=== PATIENT | female | born 1930 | race Caucasian/White ===

== ENCOUNTER 2016-07-22 22:17 | Inpatient (IN) | payer MEDICARE, OTHER ==
--- NOTE | ~2016-07-22 | CN ---
Consultation Report [facility] [address] [place]. [address] NAME: FRANCISCO VIDALES : 30 STATUS : ADM IN [facility]#: [id number] AGE: 85 ADM/REG DATE : 07/23/16 MR#: [id number] REPORT SERV DATE: 07/23/16 DICTATED BY: GEE HUNT DATE: 07/23/16 REPORT STATUS : Draft TRANSCRIBED BY: MODL DATE: 07/23/16 CONSULTATION DATE OF CONSULTATION: 07/23/2016 REASON FOR CONSULTATION: New onset atrial fibrillation, troponinemia. PRIMARY CAMP ASSISTANT: None. HISTORY OF PRESENT ILLNESS: Ms Vidales is a pleasant 85-year-old female with a history of remote tobacco smoking with COPD, recurrent pneumonia, anxiety, hypertension, and recent right femoral fracture deemed poor surgical candidate,who was brought in from [facility], where she has resided for the past several months with worsening respiratory distress. The patient has recently been treated for a pneumonia at the nursing facility with Levaquin. However, she has had worsening of her breathing status with increased symptoms of shortness of breath as well as worsening hypoxia as of yesterday, prompting her to be brought in to [facility] for further care and evaluation. Unfortunately, family is unavailable at the time of my visitation, therefore history is limited to record review and in speaking with the patient, who is a very poor historian. Nevertheless, she denies having any chest pains outside of her coughing spells. She notes that in light of having being treated for pneumonia approximately two weeks ago as well as her worsening respiratory status presently, she has been coughing a great deal. Because of this, she has coughing related chest discomfort, but no chest pains or chest pressures otherwise. She has no cardiac history that is known at this point in time. She otherwise has minimal other complaints. She does state that she has some chronic back pain and is chronically bed- ridden at this point in time. PAST MEDICAL HISTORY: As above. SOCIAL HISTORY: The patient lives at a longterm facility. She is a former smoker. Denies drinking alcohol, or doing drugs. FAMILY HISTORY: She has a family history that is noncontributory for premature cardiovascular disease. MEDICATIONS: Her medications at the facility nursing facility include: 1. BuSpar. 2. Calcium. 3. Vitamin D. 4. Flonase. 5. Lasix. 6. Levaquin. 7. Cozaar. 8. Magnesium oxide. Consultation Report [place] [address] [place]. [address] NAME: FRANCISCO VIDALES : 30 STATUS : ADM IN [facility]#: [id number] AGE: 85 ADM/REG DATE : 07/23/16 MR#: [id number] REPORT SERV DATE: 07/23/16 DICTATED BY: GEE HUNT DATE: 07/23/16 REPORT STATUS : Draft TRANSCRIBED BY: MODL DATE: 07/23/16 9. Macrobid. 10.Phosphate Dibasic. 11.Klor-Con. 12.Senokot. 13.Ultram. REVIEW OF SYSTEMS: As above, all other systems are otherwise negative. PHYSICAL EXAMINATION: VITAL SIGNS: Blood pressure 117/59, pulse 78, atrial fibrillation, temperature 98.8. GENERAL: Frail. Failure to thrive. Elderly woman. Pleasant in demeanor. NEURO: Awake, alert, and oriented x2 to x3. No focal deficits; however, bilateral lower extremities nonmobile. RESPIRATORY: At rest normal work of breathing. Diffuse severe rhonchi bilaterally may have some rales as well. CARDIAC: Irregular. Distant heart sounds. No obvious murmurs, rubs, or gallops. ABDOMEN: Soft, nontender, and nondistended. No rebound or guarding. EXTREMITIES: Contracted. Immobile lower extremities bilaterally. 2+ pitting edema bilateral lower extremities. Ecchymotic changes in her lower extremities bilaterally as well. SKIN: Grossly intact in visible areas. No obvious active rash present. PERTINENT TEST FINDINGS: Potassium 3.1, creatinine 0.73, GFR 87, and magnesium 1.8. White blood cell count 16. Troponin 2.1. BNP 825. EKG with atrial fibrillation with controlled ventricular response (on Dilt drip), no definitive ischemic ST-T changes, LVH is noted on admission EKG. IMPRESSION AND PLAN: Ms Vidales is a pleasant 85-year-old female with a history of chronic obstructive pulmonary disease (former tobacco smoking), hypertension, recurrent pneumonia, and recent right femur fracture deemed poor surgical candidate, who has been bed-ridden at a subacute nursing facility over the past few months coming in with worsening hypoxic respiratory failure in the setting of right-sided pneumonia as well as chronic obstructive pulmonary disease exacerbation. In this setting, she has also been found to have new onset atrial fibrillation and elevated troponin at 2.1. In speaking with her, she has no convincing cardiac chest pains at this point in time, as her chest pains are exclusively limited to coughing spells that she has had over the past several weeks during her pneumonia treatment course. In light of this, I am not certain that her enzymes represent a primary coronary event, as much as type 2 elevation in the setting of chronic obstructive pulmonary disease exacerbation, pneumonia, and new onset atrial fibrillation with rapid ventricular response. Accordingly, I have the following recommendations by problem below: 1. Right middle lobe pneumonia - treated with antibiotics as you are doing. Nasal cannula oxygen. 2. Chronic obstructive pulmonary disease exacerbation - nebulizer treatments and treatment per #1. Consultation Report [place] [id number] [facility] [place]. [address] NAME: FRANCISCO VIDALES : 30 STATUS : ADM IN PAT#: [id number] AGE: 85 ADM/REG DATE : 07/23/16 MR#: [id number] REPORT SERV DATE: 07/23/16 DICTATED BY: GEE HUNT DATE: 07/23/16 REPORT STATUS : Draft TRANSCRIBED BY: DIANE DATE: 07/23/16 3. New onset atrial fibrillation - on my review of telemetry, this appears to be paroxysmal. Therefore, in light of this, as well as her advanced age, I believe she will do well with an antiarrhythmic. I will start her on a loading dose of amiodarone. It will be fine to continue her Cardizem drip at this time for rate control. Eventually, this will be switched to an oral drug either a beta-nichole or an oral calcium channel nichole. Given her age of 85, hypertension, gender, and probable systolic dysfunction, she has a CHADS-VASc score of 4 to 5. Her GFR is 87 and she has no clear contraindications to anticoagulation. Therefore, I do recommend initiating Eliquis once she is off heparin drip (see below). 4. NSTEMI - troponin 2.1. Trend enzymes. Check a CK as well as a CK-MB. Continue heparin drip for 48 hours. I spoke with her at length regarding the possibility of completing an angiography; however, she prefers to be medically managed at this time without undergoing a procedure understanding the risks and benefits thereof. Therefore, we will continue above therapies at this time. I have also reached out to her daughter who she states is her Power of Core Placer, to definitively assess her plan with regard to medical management versus coronary angiography within the next one to two days. I am waiting to hear back from her daughter on this as well. Also, check an echocardiogram. RADHA/MODL Gee Hunt MD / [id number] CC: Zoe Guevara
--- NOTE | ~2016-07-22 | DS ---
Discharge Summary [facility] [address] [place]. [address] NAME: FRANCISCO ARAIZA : 30 STATUS : DIS IN PAT#: [id number] AGE: 85 ADM/REG DATE : 07/23/16 MR#: [id number] REPORT SERV DATE: 08/07/16 DICTATED BY: ALEJANDRINA CLARKE DATE: 08/06/16 REPORT STATUS : Draft TRANSCRIBED BY: MODL DATE: 08/06/16 ADMISSION DATE: 07/23/2016 DISCHARGE DATE: 07/25/2016 DISCHARGE DIAGNOSES: 1. Septic shock. 2. Acute hypoxic respiratory failure. 3. Pneumonia. 4. Dkp-EA-czxmvknmi myocardial infarction. 5. 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 6. New-onset atrial fibrillation. 7. Protein-calorie malnutrition, severe. 8. Chronic dysphagia. 9. Chronic debility, patient is bedridden. HISTORY OF PRESENT ILLNESS: This is an 86-year-old female patient, who [facility], with shortness of breath and cough. Please see the dictated H and P. HOSPITAL COURSE: She was hospitalized initially for the acute respiratory failure with hypoxia with multiple diagnoses at the same time including heart failure, slk-AJ-fkbfyjibb WI, and pneumonia. The patient also had chronic dysphagia. The patient remained on strong broad-spectrum antibiotics and IV diuretics. Was seen by Dr. Thomas from the [facility] and had an echocardiogram. The echocardiogram showed severe right ventricular and left ventricular dysfunction with systolic and diastolic dysfunction. The patient started to deteriorate with the hypoxia. She was put on BiPAP overnight, and I tried to contact the family. Unfortunately, the family was not contacted until the next morning. Finally, the patient's family came. The patient continued to deteriorate. I arranged ICU transfer by talking to Dr. Cronin, and the patient's ICU stay was accepted. At that time, the family wanted to make a decision with a little more time to talk to their friend's doctor. Finally, they made a decision to transfer the patient to the ICU around 4 o'clock in the afternoon. The patient was subsequently transferred to the CVICU #2 bed. After the Critical Care Team handed over this patient, the patient shortly deteriorated and had a code blue. Please see dictated consultation note done by Dr. Lundberg. She had 2 codes within an hour. At the last code, the patient did not show any meaningful signs of recovery. Therefore, the patient's family decided no CPR, no shock at the moment. The patient a short time later. I was informed the patient at 1815 on 07/25/2016. EKL/MODL Alejandrina Clarke M.D. / [id number] Discharge Summary [address] [address] NAME: FRANCISCO ARAIZA : 30 STATUS : DIS IN PAT#: [id number] AGE: 85 ADM/REG DATE : 07/23/16 MR#: [id number] REPORT SERV DATE: 08/07/16 DICTATED BY: ALEJANDRINA CLARKE DATE: 08/06/16 REPORT STATUS : Draft TRANSCRIBED BY: DIANE DATE: 08/06/16 CC: Zoe Guevara
--- NOTE | ~2016-07-22 | HP ---
History And Physical [place] [id number] [facility] [place]. [address] NAME: FRANCISCO ARAIZA : 30 STATUS : ADM IN [facility]#: [id number] AGE: 85 ADM/REG DATE : 07/23/16 MR#: [id number] REPORT SERV DATE: 07/23/16 DICTATED BY: HERO CABEZAS DATE: 07/23/16 REPORT STATUS : Draft TRANSCRIBED BY: MODL DATE: 07/23/16 DATE OF ADMISSION: 07/23/2016 CHIEF COMPLAINT: An 85-year-old female presenting with shortness of breath and cough. HISTORY OF PRESENT ILLNESS: The patient's history was obtained through an interview with the patient as well as her daughter, Heath, over the telephone, coupled with review of her medical records obtained from [facility]. It appears that for several months the patient has been rehabilitating at [facility]. She has a known right femur fracture, but has been evaluated past by orthopedic surgeons and felt to be too unstable clinically for surgical repair, therefore she is wheelchair bound and undergoing strengthening rehabilitation in a [facility] setting in hopes that she can become more independent. About 10 days ago, she began to develop increasing cough and shortness of breath. She was placed on Levaquin at the nursing facility for "bronchitis," but has had no real improvement in her symptoms and in fact only progression. She describes dyspnea on exertion, increasing cough productive of a thick phlegm, but then on the night of admission, the patient had such severe shortness of breath that the daughter asked staff to check her O2 saturation and was found to be 82% on room air. Apparently, the patient looked "white as a sheet," was diaphoretic, wet, and sweaty according to the daughter. She has had intermittent chest pain over last few days, but she attributes this to her coughing, it is a mid chest discomfort, exacerbated by coughing, 6/10 severity. She has had myalgias and arthralgias through many of her joints. No fevers or chills. No nausea or vomiting. She has no confusion. REVIEW OF SYSTEMS: Otherwise, a 14-point review of systems was obtained and was negative. PAST MEDICAL HISTORY: 1. COPD. 2. Pneumonia, was recently in the fall of 2016. 3. Psoriasis. 4. Hypertension. 5. Anxiety. 6. Urinary tract infection. 7. Chronic back pain. 8. Right femur fracture, but no surgical intervention. 9. Cellulitis. 10.No cardiac disease known. History And Physical [address] [address] NAME: FRANCISCO ARAIZA : 30 STATUS : ADM IN PAT#: [id number] AGE: 85 ADM/REG DATE : 07/23/16 MR#: [id number] REPORT SERV DATE: 07/23/16 DICTATED BY: HERO CABEZAS DATE: 07/23/16 REPORT STATUS : Draft TRANSCRIBED BY: DIANE DATE: 07/23/16 PAST SURGICAL HISTORY: T12 vertebroplasty. ALLERGIES: PENICILLIN. SOCIAL HISTORY: Quit smoking remotely. No alcohol abuse. Resides now at [facility]. She is wheelchair bound, became a , and she is only 39 years' old, has a daughter and son. FAMILY HISTORY: Heart disease. CURRENT MEDICATIONS: Include Tylenol with Codeine, BuSpar 5 mg p.o. b.i.d., Tums p.r.n., vitamin D, Flonase, Lasix 20 mg daily, Levaquin 750 mg p.o. daily, Cozaar 25 mg p.o. daily, magnesium oxide 800 mg p.o. b.i.d., multivitamin, Macrobid, potassium phosphate, potassium supplement, Senokot, tramadol. PHYSICAL EXAMINATION: VITAL SIGNS: Temperature 98.2, pulse 118, blood pressure 102/62, respiratory rate 22, and O2 sat 82% on room air and 92% on 3 L nasal cannula. GENERAL: A chronically debilitated appearing female, but is in no apparent acute distress. She actually appears quite comfortable in her bed as I am evaluating her. HEENT: Pupils equal, round, and reactive to light. No conjunctival pallor. No scleral icterus. Nares are patent. Oropharynx is clear of obstruction. She currently has moist mucous membranes. NECK: Trachea midline. No thyromegaly. LYMPH: No cervical lymphadenopathy. No supraclavicular lymphadenopathy. RESPIRATORY: The patient has significantly decreased respiratory sounds on the base of her right lung, and I do seemed to appreciate focal egophony over a large dissection of her right middle and lower lung. There are perhaps some slight wet crackles on exam, but no overt rales. There are some scattered end-expiratory wheezes at the apices. The patient has a slightly labored respiratory effort, but is not in distress at this time. CARDIOVASCULAR: Irregularly irregular, tachycardic. No murmurs, rubs, or gallops. She has chronic-appearing lower extremity edema with no pitting edema at this time that is symmetrical. ABDOMEN: Soft, nontender, nondistended. Normal bowel sounds auscultated throughout. No organomegaly. DERMATOLOGICAL: Warm and dry extremities. No pallor. No cyanosis. PSYCHIATRIC: Somewhat anxious affect and mood. She is alert. She is oriented to time and location. LABORATORY DATA: White blood count 16.2, hemoglobin 13, hematocrit 40, platelets 327, sodium 141, potassium 3.1, chloride 98, bicarb 29, BUN 11, creatinine 0.73, glucose 169, brain natriuretic peptide 824, troponin 3.14, INR of 1.1. ABG demonstrates pH of 7.49, PaCO2 of 39, PaO2 of 94, and a bicarbonate of 28. STUDIES: 1. Chest x-ray, by my own evaluation shows a dense right middle lobe pneumonia, History And Physical [address] [address] NAME: FRANCISCO ARAIZA : 30 STATUS : ADM IN [facility]#: [id number] AGE: 85 ADM/REG DATE : 07/23/16 MR#: [id number] REPORT SERV DATE: 07/23/16 DICTATED BY: HERO CABEZAS DATE: 07/23/16 REPORT STATUS : Draft TRANSCRIBED BY: MODFelisa DATE: 07/23/16 cardiomegaly, perhaps some slight bilateral pleural effusions? 2. EKG, by my own evaluation shows rapid atrial fibrillation. No ST changes. ASSESSMENT AND PLAN: 1. Sepsis with [facility] acquired pneumonia. White blood cell count of 16.2, hypoxia, tachycardia, tachypnea. Check blood cultures. Check lactic acid. Place on appropriate IV antibiotics including cefepime and vancomycin. 2. Hypoxic respiratory failure. Provide supportive care. 3. Non-ST elevation myocardial infarction. Start a heparin drip IV. No current EKG changes, but will follow. Discussed the case with Dr. Mcconnell, needle loom tender. 4. Rapid atrial fibrillation. Start Cardizem drip IV. New onset, check an echocardiogram. 5. Congestive heart failure exacerbation. Place on IV diuretic as tolerated. Check an echocardiogram, holding DOLLY inhibitor and beta nichole secondary to borderline hypotension. 6. Chronic obstructive pulmonary disease. Place on DuoNeb nebulizers. Noted that I discussed this case at length with the critical care physician, Dr. Lundberg. For now, we will be monitoring the patient on a telemetry bed, but we will be monitoring closely for signs of instability. CELSO/MODFelisa Hero Cabezas M.D. / [id number] CC: Ruben Maurice D.O.
--- NOTE | ~2016-07-22 | CN ---
Consultation Report [facility] [address] [place]. [address] NAME: TINA VIDALES : 30 STATUS : ADM IN PAT#: [id number] AGE: 85 ADM/REG DATE : 07/23/16 MR#: [id number] REPORT SERV DATE: 07/25/16 DICTATED BY: ELY GREY DATE: 07/25/16 REPORT STATUS : Draft TRANSCRIBED BY: MODL DATE: 07/25/16 CODE BLUE RESPONSE NOTE DATE OF CONSULTATION: Code Blue was called at 1703 on 07/25/2016, on patient Tina Vidales in CV-ICU, bed 2. Evidently, the patient had coded shortly before this code event which was run by Dr. Cronin. Her initial rhythm was PEA at 1703, and ACLS was initiated. She received 1 amp of epinephrine and on subsequent pulse check at 1705, remained in PEA. Another amp of epinephrine and another 2 minutes of CPR were administered. At subsequent pulse check at 1708, the patient was in sinus tach with a very thready pulse and after extensive discussion with her son and daughter at the bedside, decision was made to proceed with making Ms. Vidales a no-shock, no-CPR in light of her poor prognosis for meaningful recovery. She a short time later, and I completed the certificate. Her family was updated and all questions were answered. ELIU/DIANE Ely Grey MD / [id number] CC: Alejandrina Clarke M.D.
[2016-07-22 20:45] LABS: BASOPHILS 0.1 %; BASOPHILS ABSOLUTE 0.01 10/3/uL (0.0-0.16); EOSINOPHILS 0 %; HEMATOCRIT 39.7 % (36.0-48.0); HEMOGLOBIN 13.1 g/dL (12.0-16.0); IMMATURE GRANULOCYTES 0.2 %; IMMATURE GRANULOCYTES ABSOLUTE 0.04 10/3/uL (0.0-0.11); LYMPHOCYTES 5.3 %; LYMPHOCYTES ABSOLUTE 0.86 10/3/uL (0.67-4.30); MANUAL DIFF NO %; MEAN CORPUSCULAR VOLUME 96.8 fL (80-100); MEAN PLATELET VOLUME 9.1 fL (9.2-13.0); MONOCYTES 4.4 %; MONOCYTES ABSOLUTE 0.71 10/3/uL (0.21-1.20); PLATELET COUNT 327 10/3/uL (150-400); RBC DISTRIBUTION WIDTH 14.1 % (12.0-16.0); WHITE BLOOD CELLS 16.2 10/3/uL (4.5-10.5)
[2016-07-22 20:57] LABS: INTERNATIONAL NORMAL RATI 1.1 UNITS (-); PARTIAL THROMBO TIME 36.1 SEC (22.5-37.2); PROTIME (NOT ORD) 14.1 SEC (12.0-14.5)
[2016-07-22 21:01] LABS: BUN (BLOOD UREA NITROGEN) 11 MG/DL (6-23); CALCIUM, SERUM 8.1 MG/DL (8.5-10.4); CHLORIDE, SERUM 98 MMOL/L (96-112); CO2 (CARBON DIOXIDE) 29 MMOL/L (24-34); CREATININE 0.73 MG/DL (0.55-1.02); GFR AFRICAN AMERICAN 87 ML/MIN (>=60); GFR NON AFRICAN AMERICAN 75 ML/MIN (>=60); GLUCOSE, SERUM 169 MG/DL (60-99); POTASSIUM, SERUM 3.1 MMOL/L (3.5-5.3); SODIUM, SERUM 141 MMOL/L (135-148)
[2016-07-22 21:05] LABS: BE (BASE EXCESS) 4.9 MEQ/L (0 +/- 2.5); DEVICE NC; HCO3 (ACTUAL BICARBONATE) 28.5 MEQ/L (23-27); HEMOBLOGIN CONTENT 12.2 G/DL (12-16); INSTRUMENT SERIAL # 8087; METHEMOGLOBIN 0.3 % (0-3); O2 CONTENT 16.6 VOL% (18-24); OPERATOR ID 334499; PCO2 (CO2 TENSION) 39 MMHG (35-45); PO2 (O2 TENSION) 94 MMHG (79-93); SAMPLE Arterial; pH 7.49 (7.37-7.43)
[2016-07-22 21:06] LABS: ALLENS TEST Pos
[2016-07-22 21:08] LABS: CHEST PAIN PROFILE TAT 0 Hrs 27 Mins; TROPONIN I 2.14 NG/ML (<0.05)
[~2016-07-22 22:17] MED LIST: BUSPAR5 PO; CENTRUM PO; COZ25 PO; FLONASE NAS; KLOR-CON 1010 MEQ PO; L20 PO; MACROBID PO; MAGOX4 PO; PHOSPHA 250 PO; SENTAB PO; TUMSROLL PO; VITAMIN D31000 UNIT PO
[2016-07-22] MEDS ORDERED: LEVAQUIN750 MG PO (22:26)
[2016-07-22] MEDS ORDERED: T3 PO (22:27)
[2016-07-22] MEDS ORDERED: ULTRAM50 PO (22:27)
[2016-07-23 08:05] LABS: INTERNATIONAL NORMAL RATI 1.3 UNITS (-); PROTIME (NOT ORD) 15.7 SEC (12.0-14.5)
[2016-07-23 08:15] LABS: PARTIAL THROMBO TIME > 150.0 SEC (22.5-37.2)
[2016-07-23 08:22] LABS: A/G RATIO 0.5 (0.7-1.9); ALBUMIN 2.3 G/DL (3.5-5.0); ALKALINE PHOSPHATASE 140 U/L (45-117); CALCIUM, SERUM 7.7 MG/DL (8.5-10.4); CHLORIDE, SERUM 102 MMOL/L (96-112); CO2 (CARBON DIOXIDE) 25 MMOL/L (24-34); CREATININE 0.57 MG/DL (0.55-1.02); GFR AFRICAN AMERICAN 98 ML/MIN (>=60); GFR NON AFRICAN AMERICAN 85 ML/MIN (>=60); GLUCOSE, SERUM 162 MG/DL (60-99); PHOSPHORUS, SERUM 2.4 MG/DL (2.5-4.5); SGOT(AST) 28 U/L (5-40); SGPT(ALT) 9 U/L (5-65); TOTAL BILIRUBIN 0.6 MG/DL (0-1.2); TOTAL PROTEIN 7.3 G/DL (6.0-8.5)
[2016-07-23 08:23] LABS: BUN (BLOOD UREA NITROGEN) 15 MG/DL (6-23); SODIUM, SERUM 141 MMOL/L (135-148); TROPONIN I 1.73 NG/ML (<0.05)
[2016-07-23 08:34] LABS: B NATRIURETIC PEPTIDE (BNP) 2415.4 PG/ML (< 100.0)
[2016-07-23 09:00] LABS: PROCALCITONIN 1.16 ng/mL (<0.5)
[2016-07-23 09:29] LABS: CK-MB 5.3 NG/ML; CPK 66 U/L (0-200)
[2016-07-23 10:42] LABS: BASOPHILS 0 %; EOSINOPHILS 0 %; IMMATURE GRANULOCYTES 0.5 %; IMMATURE GRANULOCYTES ABSOLUTE 0.07 10/3/uL (0.0-0.11); LYMPHOCYTES 8.8 %; LYMPHOCYTES ABSOLUTE 1.34 10/3/uL (0.67-4.30); MEAN CORPUS HGB CONC 32.8 g/dL (32.0-36.0); MEAN CORPUSCULAR HEMOGLOB 31.3 pg (26.0-34.0); MEAN CORPUSCULAR VOLUME 95.3 fL (80-100); MEAN PLATELET VOLUME 9.5 fL (9.2-13.0); MONOCYTES 3.7 %; MONOCYTES ABSOLUTE 0.56 10/3/uL (0.21-1.20); NEUTROPHILS ABSOLUTE 13.18 10/3/uL (2.02-8.40); PLATELET COUNT 286 10/3/uL (150-400); WHITE BLOOD CELLS 15.2 10/3/uL (4.5-10.5)
[2016-07-23 10:44] LABS: HEMATOCRIT 30.5 % (36.0-48.0); MANUAL DIFF NO %
[2016-07-23 12:46] LABS: PREALBUMIN 4.9 MG/DL (17.0-43.0)
[2016-07-23 13:06] LABS: GLYCOHEMOGLOBIN (HbA1c) 5.3 % (4.7-6.1)
[2016-07-23 19:10] LABS: CK-MB 3.3 NG/ML; CPK 53 U/L (0-200); POTASSIUM, SERUM 3.9 MMOL/L (3.5-5.3); TROPONIN I 0.97 NG/ML (<0.05)
[2016-07-24 07:16] LABS: BASOPHILS 0.1 %; BASOPHILS ABSOLUTE 0.01 10/3/uL (0.0-0.16); EOSINOPHILS 0 %; HEMOGLOBIN 8.2 g/dL (12.0-16.0); IMMATURE GRANULOCYTES 0.4 %; IMMATURE GRANULOCYTES ABSOLUTE 0.06 10/3/uL (0.0-0.11); LYMPHOCYTES 7.1 %; LYMPHOCYTES ABSOLUTE 1.11 10/3/uL (0.67-4.30); MEAN CORPUS HGB CONC 33.6 g/dL (32.0-36.0); MEAN CORPUSCULAR HEMOGLOB 31.3 pg (26.0-34.0); MEAN CORPUSCULAR VOLUME 93.1 fL (80-100); MEAN PLATELET VOLUME 8.9 fL (9.2-13.0); MONOCYTES ABSOLUTE 0.47 10/3/uL (0.21-1.20); NEUTROPHILS 89.4 %; NEUTROPHILS ABSOLUTE 13.97 10/3/uL (2.02-8.40); PLATELET COUNT 203 10/3/uL (150-400); RED CELL COUNT 2.62 10/6/uL (4.0-5.6); WHITE BLOOD CELLS 15.6 10/3/uL (4.5-10.5)
[2016-07-24 07:21] LABS: HEMATOCRIT 24.4 % (36.0-48.0); MANUAL DIFF NO %
[2016-07-24 07:31] LABS: A/G RATIO 0.6 (0.7-1.9); ALBUMIN 2.5 G/DL (3.5-5.0); ALKALINE PHOSPHATASE 104 U/L (45-117); BUN (BLOOD UREA NITROGEN) 21 MG/DL (6-23); CALCIUM, SERUM 7.8 MG/DL (8.5-10.4); CHLORIDE, SERUM 99 MMOL/L (96-112); CK-MB 1.7 NG/ML; CO2 (CARBON DIOXIDE) 27 MMOL/L (24-34); CPK 25 U/L (0-200); CREATININE 0.59 MG/DL (0.55-1.02); GFR AFRICAN AMERICAN 97 ML/MIN (>=60); GFR NON AFRICAN AMERICAN 84 ML/MIN (>=60); GLOBULIN 4.2 G/DL (2.5-4.1); GLUCOSE, SERUM 153 MG/DL (60-99); POTASSIUM, SERUM 3.8 MMOL/L (3.5-5.3); SGOT(AST) 18 U/L (5-40); SGPT(ALT) 10 U/L (5-65); SODIUM, SERUM 136 MMOL/L (135-148); TOTAL BILIRUBIN 0.6 MG/DL (0-1.2); TOTAL PROTEIN 6.7 G/DL (6.0-8.5)
[2016-07-24 07:32] LABS: TROPONIN I 0.56 NG/ML (<0.05)
[2016-07-24 12:29] LABS: BASOPHILS 0.1 %; BASOPHILS ABSOLUTE 0.01 10/3/uL (0.0-0.16); EOSINOPHILS 0 %; HEMOGLOBIN 9.5 g/dL (12.0-16.0); IMMATURE GRANULOCYTES 0.4 %; IMMATURE GRANULOCYTES ABSOLUTE 0.05 10/3/uL (0.0-0.11); LYMPHOCYTES 6.5 %; LYMPHOCYTES ABSOLUTE 0.91 10/3/uL (0.67-4.30); MEAN CORPUS HGB CONC 34.4 g/dL (32.0-36.0); MEAN CORPUSCULAR HEMOGLOB 32.4 pg (26.0-34.0); MEAN CORPUSCULAR VOLUME 94.2 fL (80-100); MEAN PLATELET VOLUME 9.3 fL (9.2-13.0); MONOCYTES 4.4 %; MONOCYTES ABSOLUTE 0.61 10/3/uL (0.21-1.20); NEUTROPHILS 88.6 %; NEUTROPHILS ABSOLUTE 12.39 10/3/uL (2.02-8.40); PLATELET COUNT 231 10/3/uL (150-400); RED CELL COUNT 2.93 10/6/uL (4.0-5.6)
[2016-07-24 12:32] LABS: HEMATOCRIT 27.6 % (36.0-48.0); MANUAL DIFF NO %
[2016-07-24 12:44] LABS: A/G RATIO 0.6 (0.7-1.9); ALBUMIN 2.5 G/DL (3.5-5.0); ALKALINE PHOSPHATASE 107 U/L (45-117); BUN (BLOOD UREA NITROGEN) 23 MG/DL (6-23); CHLORIDE, SERUM 100 MMOL/L (96-112); CO2 (CARBON DIOXIDE) 25 MMOL/L (24-34); CREATININE 0.64 MG/DL (0.55-1.02); GFR AFRICAN AMERICAN 94 ML/MIN (>=60); GFR NON AFRICAN AMERICAN 81 ML/MIN (>=60); GLOBULIN 4.4 G/DL (2.5-4.1); GLUCOSE, SERUM 161 MG/DL (60-99); POTASSIUM, SERUM 3.7 MMOL/L (3.5-5.3); SGOT(AST) 24 U/L (5-40); SGPT(ALT) 6 U/L (5-65); SODIUM, SERUM 136 MMOL/L (135-148); TOTAL BILIRUBIN 0.6 MG/DL (0-1.2); TOTAL PROTEIN 6.9 G/DL (6.0-8.5)
[2016-07-25 03:41] LABS: BE (BASE EXCESS) -1.6 MEQ/L (0 +/- 2.5); CARBOXYHEMOGLOBIN 0.3 % (0-3); HCO3 (ACTUAL BICARBONATE) 22.3 MEQ/L (23-27); HEMOBLOGIN CONTENT 10.6 G/DL (12-16); INSTRUMENT SERIAL # 35151; METHEMOGLOBIN 0.4 % (0-3); O2 CONTENT 14.3 VOL% (18-24); PCO2 (CO2 TENSION) 35 MMHG (35-45); PO2 (O2 TENSION) 88 MMHG (79-93); pH 7.42 (7.37-7.43)
[2016-07-25 03:42] LABS: ALLENS TEST Pos; DEVICE NC; OPERATOR ID 30014; SAMPLE Arterial
[2016-07-25 11:49] LABS: BASOPHILS 0 %; EOSINOPHILS 0 %; HEMATOCRIT 26.7 % (36.0-48.0); HEMOGLOBIN 9.1 g/dL (12.0-16.0); IMMATURE GRANULOCYTES 0.3 %; IMMATURE GRANULOCYTES ABSOLUTE 0.05 10/3/uL (0.0-0.11); LYMPHOCYTES 5.1 %; LYMPHOCYTES ABSOLUTE 0.77 10/3/uL (0.67-4.30); MEAN CORPUS HGB CONC 34.1 g/dL (32.0-36.0); MEAN CORPUSCULAR HEMOGLOB 32.3 pg (26.0-34.0); MEAN CORPUSCULAR VOLUME 94.7 fL (80-100); MEAN PLATELET VOLUME 9.9 fL (9.2-13.0); MONOCYTES 3.1 %; MONOCYTES ABSOLUTE 0.47 10/3/uL (0.21-1.20); NEUTROPHILS 91.5 %; NEUTROPHILS ABSOLUTE 13.85 10/3/uL (2.02-8.40); PLATELET COUNT 229 10/3/uL (150-400); RED CELL COUNT 2.82 10/6/uL (4.0-5.6); WHITE BLOOD CELLS 15.1 10/3/uL (4.5-10.5)
[2016-07-25 11:50] LABS: MANUAL DIFF NO %
[2016-07-25 12:04] LABS: CALCIUM, SERUM 8.3 MG/DL (8.5-10.4); CHLORIDE, SERUM 99 MMOL/L (96-112); CO2 (CARBON DIOXIDE) 29 MMOL/L (24-34); CREATININE 0.76 MG/DL (0.55-1.02); GFR AFRICAN AMERICAN 83 ML/MIN (>=60); GFR NON AFRICAN AMERICAN 72 ML/MIN (>=60); GLUCOSE, SERUM 168 MG/DL (60-99); POTASSIUM, SERUM 3.8 MMOL/L (3.5-5.3); SODIUM, SERUM 138 MMOL/L (135-148)
[2016-07-25 12:05] LABS: BUN (BLOOD UREA NITROGEN) 28 MG/DL (6-23); TROPONIN I 0.31 NG/ML (<0.05)
[2016-07-25 16:18] LABS: BE (BASE EXCESS) -2.7 MEQ/L (0 +/- 2.5); HEMOBLOGIN CONTENT 10.7 G/DL (12-16); INSTRUMENT SERIAL # 8083; METHEMOGLOBIN 0.3 % (0-3); O2 CONTENT 12.2 VOL% (18-24); PCO2 (CO2 TENSION) 67 MMHG (35-45); PO2 (O2 TENSION) 56 MMHG (79-93); SAMPLE Arterial; pH 7.21 (7.37-7.43)
[2016-07-25 16:19] LABS: ALLENS TEST Pos; BIPAP 18/5 cm.H2O
== END 2016-07-25 19:59 | disposition expired | DRG 871 ==
LOC: ER 22:17 → 7NO 07-23 → CVICU 07-25 15:55
PROVIDERS: Emergency Medicine; Internal Medicine; Student in an Organized Health Care Education/Training Program
DX: A41.9 Sepsis, unspecified organism (principal); J96.01 Acute respiratory failure with hypoxia; I21.4 Non-ST elevation (NSTEMI) myocardial infarction; J18.9 Pneumonia, unspecified organism; J44.1 Chronic obstructive pulmonary disease with (acute) exacerbation; S72.91XA Unspecified fracture of right femur, initial encounter for closed fracture; E46 Unspecified protein-calorie malnutrition; I48.2 Chronic atrial fibrillation; R13.10 Dysphagia, unspecified; Z87.01 Personal history of pneumonia (recurrent); Z91.81 History of falling; Z87.440 Personal history of urinary (tract) infections; G89.29 Other chronic pain; Z88.0 Allergy status to penicillin; Z87.891 Personal history of nicotine dependence; Z79.899 Other long term (current) drug therapy; Z82.49 Family history of ischemic heart disease and other diseases of the circulatory system; Z74.01 Bed confinement status
CPT/HCPCS: 31720; 36600; 71010; 71250; 80048; 80053; 82550; 82553; 82805; 82962; 83036; 83605; 83735; 83880; 84100; 84132; 84134; 84145; 84443; 84484; 85025; 85610; 85730; 87040; 87077; 87150; 87186; 87449; 92950; 93005; 94002; 94640; 94660; 96374; 96375; 99285; A9270-GY; C8929; J0692; J2920; J2930; J3370; P9047; Q9957